=== PATIENT | female | born 1995 ===

== ENCOUNTER 2017-09-15 07:45 | Emergency (ER) | payer BC ==
--- NOTE | 2017-09-15 07:56 | UC ---
Throat Pain/Nasal Oscar HPI - HPI Summary HPI Summary: sore throat x 1 day swollen neck glands, no fever, no chills, no body aches, no nasal congestion and no cough - History of Current Complaint Stated Complaint: SORE THROAT Time Seen by Provider: 09/15/17 07:55 Hx Obtained From: Patient Onset/Duration: Gradual Onset, Lasting Days - 1, Still Present Severity: Moderate Cough: None Associated Signs & Symptoms: Negative: Sinus Discomfort, Nasal Discharge, Fever , Rash - Allergies/Home Medications Allergies/Adverse Reactions: Allergies Allergy/AdvReac Type Severity Reaction Status Date / Time seasonal Allergy Runny Nose Uncoded 09/15/17 07:56 Home Medications: Home Medications Ibuprofen TAB* [Motrin TAB* 600 MG] 600 mg PO ONCE PRN 09/15/17 [History Confirmed 09/15/17] Cindy 1 unit IU DAILY 09/15/17 [History Confirmed 09/15/17] PMH/Surg Hx/FS Hx/Imm Hx Previously Healthy: Yes - Family History Known Family History: Negative: Diabetes Review of Systems Constitutional: Negative Skin: Negative Eyes: Negative ENT: Sore Throat Respiratory: Negative Cardiovascular: Negative Gastrointestinal: Negative Genitourinary: Negative Is Patient Immunocompromised?: No All Other Systems Reviewed And Are Negative: Yes Physical Exam Triage Information Reviewed: Yes Appearance: Well-Appearing, No Pain Distress, Well-Nourished Vital Signs Reviewed: Yes Eyes: Positive: Conjunctiva Clear ENT: Positive: Normal ENT inspection, Hearing grossly normal, Pharyngeal erythema, TMs normal, Tonsillar exudate. Negative: Nasal congestion, Nasal drainage Neck: Positive: Supple, Nontender, No Lymphadenopathy Respiratory: Positive: Chest non-tender, Lungs clear, Normal breath sounds Cardiovascular: Positive: RRR, No Murmur Skin Exam: Normal Throat Pain/Nasal Course/Dx - Differential Dx/Diagnosis Provider Diagnoses: strep pharyngitis Discharge - Discharge Plan Condition: Stable Disposition: HOME Prescriptions: Amoxicillin PO (*) [Amoxicillin 875 MG (*)] 875 mg PO BID #20 tab Patient Education Materials: Pharyngitis (ED) Referrals: Non Staff,Doctor [Primary Care Provider] - If Needed
[2017-09-15 08:03] VITALS: BP 110/65
== END 2017-09-15 08:12 | disposition home or self-care (01) ==
LOC: UCCORT 07:45
DX: J02.0 Streptococcal pharyngitis (principal)
CPT/HCPCS: 99202; G0463

== ENCOUNTER 2017-09-17 07:40 | Emergency (ER) | payer BC ==
[2017-09-17 07:58] VITALS: BP 105/67
[2017-09-17] MEDS ORDERED: predniSONE TAB* 20 MG PO ONE (08:50)
--- NOTE | 2017-09-17 08:56 | UC ---
Throat Pain/Nasal Oscar HPI - HPI Summary HPI Summary: 22 [address] x 4 days On second day of AMOX for tonsillitis no improvement fatique no hx of MONO no f/c no abd pain - History of Current Complaint Chief Complaint: UCRespiratory Stated Complaint: RE-CHECK SORE THROAT Time Seen by Provider: 09/17/17 08:44 Hx Obtained From: Patient Hx Last Menstrual Period: unknown, cristina IUD Onset/Duration: Gradual Onset, Lasting Days Severity: Moderate Pain Intensity: 6 Pain Scale Used: 0-10 Numeric Associated Signs & Symptoms: Positive: Negative - Epiglottits Risk Factors Epiglottis Risk Factors: Negative - Allergies/Home Medications Allergies/Adverse Reactions: Allergies Allergy/AdvReac Type Severity Reaction Status Date / Time seasonal Allergy Runny Nose Uncoded 09/17/17 07:55 PMH/Surg Hx/FS Hx/Imm Hx Previously Healthy: Yes - Surgical History Surgical History: None - Family History Known Family History: Positive: Hypertension Negative: Diabetes - Social History Alcohol Use: Occasionally Substance Use Type: None Smoking Status (MU): Never Smoked Tobacco Review of Systems Constitutional: Fatigue Skin: Negative Eyes: Negative ENT: Sore Throat Respiratory: Negative Cardiovascular: Negative Gastrointestinal: Negative Genitourinary: Negative Motor: Negative Neurovascular: Negative Musculoskeletal: Negative Neurological: Negative Psychological: Negative Is Patient Immunocompromised?: No All Other Systems Reviewed And Are Negative: Yes Physical Exam Triage Information Reviewed: Yes Appearance: Well-Appearing, No Pain Distress, Well-Nourished Vital Signs: Initial Vital Signs Temp 98.4 F 09/17/17 07:53 Pulse 75 09/17/17 07:53 Resp 14 09/17/17 07:53 BP 105/67 09/17/17 07:53 Pulse Ox 100 09/17/17 07:53 Eyes: Positive: Conjunctiva Clear ENT: Positive: Hearing grossly normal, TMs normal, Tonsillar swelling, Tonsillar exudate, Uvula midline. Negative: Nasal congestion, Nasal drainage, Trismus, Muffled voice, Hoarse voice Neck: Positive: Supple, Enlarged Nodes @ - ant cervical Respiratory: Positive: Lungs clear, Normal breath sounds, No respiratory distress Cardiovascular: Positive: RRR, No Murmur Abdomen Description: Positive: Nontender, No Organomegaly, Soft. Negative: CVA Tenderness (R), CVA Tenderness (L) Bowel Sounds: Positive: Present Musculoskeletal Exam: Normal Neurological: Positive: Alert Psychological Exam: Normal Skin Exam: Normal Throat Pain/Nasal Course/Dx - Differential Dx/Diagnosis Provider Diagnoses: acute exudative tonsillitis Discharge - Discharge Plan Condition: Stable Disposition: HOME Prescriptions: predniSONE [Prednisone] 60 mg PO DAILY #6 tab Patient Education Materials: Tonsillitis (ED) Referrals: Non Staff,Doctor [Primary Care Provider] - Additional Instructions: continue amox take prednisone in the AM for 2 more days RECHECK FOR WORSENING SYMPTOMS RECHECK THURSDAY IF NOT BETTER IF STILL ILL THEN YOU MAY NEED A BLOOD TEST FOR MONO
== END 2017-09-17 08:58 | disposition home or self-care (01) ==
LOC: UCCORT 07:40
DX: J03.90 Acute tonsillitis, unspecified (principal)
CPT/HCPCS: 99212; G0463; J7512

== ENCOUNTER 2017-09-23 08:48 | Emergency (ER) | payer BC | END 2017-09-23 08:53 | disposition left against medical advice (07) | LOC: UCCORT 08:48 | DX: S61.012A Laceration without foreign body of left thumb without damage to nail, initial encounter (principal); Z53.21 Procedure and treatment not carried out due to patient leaving prior to being seen by health care provider ==